=== PATIENT | female | born 1980 | race Caucasian/White ===

== ENCOUNTER 2017-07-09 10:18 | Emergency (ER) | payer MEDICAID, OTHER ==
--- NOTE | 2017-07-09 11:26 | RAD ---
RIGHT HUMERUS 2 VIEWS: INDICATION: Pain, injury. FINDINGS: No fracture or dislocation. IMPRESSION: No acute osseous abnormality of the right humerus. POS: [facility]
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
[2017-07-09] MEDS ORDERED: Ondansetron ODT 4 MG TAB ONE (12:00)
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
--- OUTSIDE RECORDS SUMMARY | 2017-07-13 10:03 | XMS | Continuity of Care Document ---
:1980 Author Organization [facility] Care Team Providers Name Role Phone KAT WEBB Admitting Physician KAT WEBB Attending Physician Hospital Admission Diagnosis Code Admission Diagnosis Date [id number] Open wound of foot Social History Element Description Code Description Smoking Status Start Date End Date Code System Smoking Status 432668860 Current every day SNOMED-CT smoker Problems Code Code System Problem Name Start Date End Date Status ESOPHAGEAL ULCERS Unknown Active 685365622 SNOMED-CT Poisoning due to venomous spider Unknown Active 1422830 SNOMED-CT Arthritis Unknown Active 75056464 SNOMED-CT Anxiety Unknown Active Medications RxNorm Medication Dose Route Instructions Indications Start End Status Date Date 307291 Acetaminophen 1 tablet Oral orally every 4 pain Active 300 MG / to 6 hours as Codeine needed. Phosphate 30 MG Oral Tablet 2556 Citalopram 60 Oral orally every Active milligrams day 258 Clindamycin 600 Oral orally 4 times Active milligram per day (10 day) 4083 Estradiol 0.5 Oral orally every Active milligram day Ibuprofen 800 800 Oral orally 3 times Active MG Oral Tablet milligram per day 935307 ziprasidone 20 20 milligram Oral orally 2 times Active MG Oral Capsule per day (administer with food;) Allergies Code Code Allergy Type Reaction Severity Start End Status System Substance Date Date 7986 RXNorm Penicillins Drug 'mother Moderate Active allergy always told me I was allergic' 1514598 RXNorm latex Drug 'swelling Moderate Active allergy and blistering' Results Laboratory Results Order: CULTURE AEROBIC LOINC Test Result Flag Range Unit Date Specimen: Foot Right 02/11/2017 07:43 Collected: 02/11/2017 07:43 02/11/2017 07:43 02/11/2017 07:43 Status: Final Last Updated: 02/14/2017 07:51 02/11/2017 07:43 02/11/2017 07:43 (1) right foot tissue 02/11/2017 07:43 02/11/2017 07:43 02/11/2017 07:43 02/11/2017 07:43 Culture Result (Final) (Final) 02/11/2017 07:43 No Growth After 72 Hours 02/11/2017 07:43 02/11/2017 07:43 02/11/2017 07:43 Order: CULTURE ANAEROBIC LOINC Test Result Flag Range Unit Date Specimen: Foot Right 02/11/2017 07:43 Collected: 02/11/2017 07:43 02/11/2017 07:43 02/11/2017 07:43 Status: Final Last Updated: 02/14/2017 07:51 02/11/2017 07:43 02/11/2017 07:43 (1) right foot tissue 02/11/2017 07:43 02/11/2017 07:43 02/11/2017 07:43 02/11/2017 07:43 Culture Result (Final) (Final) 02/11/2017 07:43 No Anaerobes Isolated 02/11/2017 07:43 02/11/2017 07:43 02/11/2017 07:43 Order: CBC PLATELET AUTO DIFF LOINC Test Result Flag Range Unit Date 37440-1 1Leukocytes^^corrected for 8.1 4.8-10.8 k/ul 02/09/2017 14:04 nucleated erythrocytes:NCnc:Pt:Bld:Q n:Automated count 789-8 1Erythrocytes:NCnc:Pt:Bld: 4.38 4.20-5.40 Millions/ul 02/09/2017 14:04 Qn:Automated count 718-7 1Hemoglobin:MCnc:Pt:Bld:Qn 9.5 L 12.0-14.0 gm/dl 02/09/2017 14:04 4544-3 1Hematocrit:VFr:Pt:Bld:Qn: 31.2 L 37.0-47.0 % 02/09/2017 14:04 Automated count 787-2 1Erythrocyte mean 71.3 L 81.0-99.0 fL 02/09/2017 14:04 corpuscular volume:EntVol:Pt:RBC:Qn:Au tomated count 785-6 1Erythrocyte mean 21.8 L 27.0-31.0 pg 02/09/2017 14:04 corpuscular hemoglobin:EntMass:Pt:RBC: Qn:Automated count 786-4 1Erythrocyte mean 30.5 L 33.0-37.0 gm/dl 02/09/2017 14:04 corpuscular hemoglobin concentration:MCnc:Pt:RBC: Qn:Automated count 788-0 1Erythrocyte distribution 19.3 H 11.5-14.5 % 02/09/2017 14:04 width:Ratio:Pt:RBC:Qn:Auto mated count 777-3 1Platelets:NCnc:Pt:Bld:Qn: 230 130-400 10^3/ul 02/09/2017 14:04 Automated count 43775-0 1Platelet mean 7.7 7.4-10.4 fL 02/09/2017 14:04 volume:EntVol:Pt:Bld:Qn:Au tomated count 770-8 1Neutrophils/100 66.3 42.0-75.0 % 02/09/2017 14:04 leukocytes:NFr:Pt:Bld:Qn:A utomated count 736-9 1Lymphocytes/100 22.9 13.0-42.0 % 02/09/2017 14:04 leukocytes:NFr:Pt:Bld:Qn:A utomated count 5905-5 1Monocytes/100 5.2 4.0-14.0 % 02/09/2017 14:04 leukocytes:NFr:Pt:Bld:Qn:A utomated count 713-8 1Eosinophils/100 5.5 H 1.0-3.0 % 02/09/2017 14:04 leukocytes:NFr:Pt:Bld:Qn:A utomated count 706-2 1Basophils/100 0.1 L 1.0-3.0 % 02/09/2017 14:04 leukocytes:NFr:Pt:Bld:Qn:A utomated count 1NRBC, Auto 0 02/09/2017 14:04 Performing Lab Footnotes:[address] [place] [address]-[facility] [id number] - [address] [facility] [address] [address] [place] [id number] [facility] - : DIRECTOR MANUEL GONSALES__ ____ Vital Signs Vitals Value Date Body Temperature 97.6 F 02/11/2017 Respiratory Rate 16 02/11/2017 O2% BldC Oximetry 98 02/11/2017 BP Systolic 110 mmHg 02/11/2017 BP Diastolic 71 mmHg 02/11/2017 Height 62 in 02/09/2017 Weight Measured 145.04 lbs 02/09/2017 BSA (Body Surface Area) 1.37036 02/09/2017 BMI (Body Mass Index) 26.6 02/09/2017 Plan of Care No data in the system Procedures Code Code System Procedure Name Target Site Date of Procedure 512692192 SNOMED Hysterectomy 12/2016 OPEN EXCISION OF ENDOMETRIOSIS 2016 COLON RESECTION 2014 BACK SURGERY 2009 73587703 SNOMED Hernia repair 2006 EXCISION OF BENIGN BREAST MASS 2002 538610222 SNOMED Reconstruction of nose 2001 LAP EXCISION OF ENDOMETRIOSIS X 7 Unknown Encounters No data in the system Immunizations Vaccine Code Code System Vaccine Name Date Status INFLUENZA APR 2016 Completed PNEUMONIA APR 2015 Completed TETANUS APR 2016 Completed Functional Status No data in the system Hospital Discharge Instructions PsychosocialPatient/Family ConcernsNoneEmotional StateCalmPleasantDischarge InstructionsDischarge Diagnosiss/p I&D OF RIGHT FOOTActivity LevelNON WEIGHT BEARING TO THE RIGHT FOOTOtherMedicationsContinue Present MedicationsDietRegularInstructions ProvidedDischarge InstructionsPatient education providedFollow Up CareYesScheduled AppointmentDischarge Instructions 2Wound / Incision CareIncisionPersonal Belongings Returned To Patient/FamilyN/ AValuables Returned To Patient/FamilyN/APre-Admission Medications Returned To Patient/FamilyN/APerson Receiving Discharge InstructionsS. WINK/ FAMILYDischarge Instructions Explained ToPatientSpouseDischarge SummaryDischarge StatusNON WEIGHT BEARING TO THE RIGHT FOOTPatient Transferred/ Discharged ToPeter [facility] HospitaleAccompanied BySpouseMode Of DischargeWheelchairDischarge StatusVital Signs StablePatient Transferred/Discharged ToRelativesDischarge StatusAfebrileOtherPain At DischargeDenies PainPt shows no visible signs of pain
--- OUTSIDE RECORDS SUMMARY | 2017-07-13 10:03 | XMS | Continuity of Care Document ---
:1980 Author Organization [facility] Care Team Providers Name Role Phone KAT WEBB Admitting Physician KAT WEBB Attending Physician Hospital Admission Diagnosis Code Admission Diagnosis Date [id number] Open wound of foot Social History Element Description Code Description Smoking Status Start Date End Date Code System Smoking Status 562205358 Current every day SNOMED-CT smoker Problems Code Code System Problem Name Start Date End Date Status ESOPHAGEAL ULCERS Unknown Active 268208031 SNOMED-CT Poisoning due to venomous spider Unknown Active 8611555 SNOMED-CT Arthritis Unknown Active 30519491 SNOMED-CT Anxiety Unknown Active Medications RxNorm Medication Dose Route Instructions Indications Start End Status Date Date 058045 Acetaminophen 1 tablet Oral orally every 4 [...] Active MG Oral Tablet milligram per day 183584 ziprasidone 20 20 milligram Oral orally 2 times Active MG Oral Capsule per day (administer with food;) Allergies Code Code Allergy Type Reaction Severity Start End Status System Substance Date Date 7986 RXNorm Penicillins Drug 'mother Moderate Active allergy always told me I was allergic' 3491141 RXNorm latex Drug 'swelling Moderate Active allergy [...] LOINC Test Result Flag Range Unit Date 41789-3 1Leukocytes^^corrected for 8.1 4.8-10.8 k/ul 02/09/2017 14:04 [...] 230 130-400 10^3/ul 02/09/2017 14:04 Automated count 32739-7 1Platelet mean 7.7 7.4-10.4 fL 02/09/2017 14:04 [...] 1NRBC, Auto 0 02/09/2017 14:04 Performing Lab Footnotes:[address] [place] [address] - [id number] - [address] [facility] [facility] [place] [address] LETITIA Lee MD: DIRECTOR MANUEL GONSALES__ ____ Vital Signs Vitals Value Date Body Temperature 97.6 F 02/11/2017 Respiratory Rate 16 02/11/2017 O2% BldC Oximetry 98 02/11/2017 BP Systolic 110 mmHg 02/11/2017 BP Diastolic 71 mmHg 02/11/2017 Height 62 in 02/09/2017 Weight Measured 145.04 lbs 02/09/2017 BSA (Body Surface Area) 1.02315 02/09/2017 BMI (Body Mass Index) 26.6 02/09/2017 Plan of Care No data in the system Procedures Code Code System Procedure Name Target Site Date of Procedure 56536 CPT4 DEBRIDEMENT MUSCLE & FASCIA 20 SQ 02/11/2017 CM/< 812236566 SNOMED Hysterectomy 12/2016 OPEN EXCISION OF ENDOMETRIOSIS 2016 COLON RESECTION 2014 BACK SURGERY 2009 35102703 SNOMED Hernia repair 2006 EXCISION OF BENIGN BREAST MASS 2002 047102930 SNOMED Reconstruction of nose 2001 LAP EXCISION OF ENDOMETRIOSIS X 7 Unknown Encounters Date Code Diagnosis Status (ICD10) - I96 GANGRENE NOT ELSEWHERE CLASSIFIED Active Immunizations Vaccine Code Code System Vaccine Name [...] BEARING TO THE RIGHT FOOTPatient Transferred/ Discharged ToHomeAccompanied BySpouseMode Of DischargeWheelchairDischarge StatusVital Signs StablePatient Transferred/Discharged ToRelativesDischarge StatusAfebrileOtherPain At DischargeDenies PainPt shows no visible signs of pain
== END 2017-07-09 12:55 | disposition home or self-care (01) ==
LOC: ERS 10:18
DX: S16.1XXA Strain of muscle, fascia and tendon at neck level, initial encounter (principal); S00.03XA Contusion of scalp, initial encounter; S40.021A Contusion of right upper arm, initial encounter; F17.200 Nicotine dependence, unspecified, uncomplicated; V03.99XA Pedestrian with other conveyance injured in collision with car, pick-up truck or van, unspecified whether traffic or nontraffic accident, initial encounter
CPT/HCPCS: 70450; 72040; 99406; Q0162

== ENCOUNTER 2017-08-17 12:57 | Outpatient (CLI) | payer OTHER ==
--- NOTE | 2017-08-17 14:16 | MRI ---
MRI CERVICAL SPINE: Date: 08/17/17 Multiplanar, multisequential imaging of cervical spine obtained. HISTORY: Cervical radiculopathy. Bilateral shoulder pain. FINDINGS: Cervical vertebral maintain normal height and alignment. Disc spaces are maintained. No significant disc bulge or spondylosis seen at C2-3 or C3-4. At C4-5, minimal disc bulge and spondylosis flatten the thecal sac. The anterior subarachnoid space i s preserved. The foramina are patent. At C5-6 and C6-7, there is also minimal spondylitic change and disc bulge. Anterior subarachnoid spac e is preserved at both of these levels. There is no foraminal encroachment. At C7-T1, no disc bulge or spondylitic change seen. Cervical cord signal is normal. IMPRESSION: Unremarkable MRI of cervical spine. Minimal disc bulge and spondylosis seen as described above. POS: [facility]
--- NOTE | 2017-08-17 14:17 | RAD ---
CERVICAL SPINE SERIES 3 VIEWS INCLUDING FLEXION AND EXTENSION: Date: 08/17/17 HISTORY: Cervical radiculopathy, bilateral shoulder pain. FINDINGS: Vertebral bodies maintain normal height. Disc spaces are fairly well preserved. I do not appreciate a ny anterolisthesis or retrolisthesis. On flexion, there is slightly more prominent anterior translati on of C4-5. No soft tissue swelling. IMPRESSION: No acute findings. No significant disc space narrowing seen. POS: [facility]
== END 2017-08-17 12:58 | disposition home or self-care (01) ==
LOC: TBSIIMAG 12:57
PROVIDERS: ATTEND Neurological Surgery
DX: M47.22 Other spondylosis with radiculopathy, cervical region (principal)
CPT/HCPCS: 72040; 72141

== ENCOUNTER 2017-10-25 10:36 | Outpatient (CLI) | payer MEDICAID, OTHER ==
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
== END 2017-10-25 10:37 | disposition home or self-care (01) ==
LOC: EEVIPCON 10:36 → SCSMRI 10:36
PROVIDERS: ATTEND Orthopaedic Surgery
DX: M25.511 Pain in right shoulder (principal); M19.011 Primary osteoarthritis, right shoulder

== ENCOUNTER 2022-01-10 19:04 | Emergency (ER) | payer OTHER | END 2022-01-10 19:56 | disposition home or self-care (01) | LOC: ERS 19:04 | DX: S09.90XA Unspecified injury of head, initial encounter (principal); S00.83XA Contusion of other part of head, initial encounter; F17.200 Nicotine dependence, unspecified, uncomplicated; Y04.8XXA Assault by other bodily force, initial encounter; Y92.481 Parking lot as the place of occurrence of the external cause | CPT/HCPCS: 70450; 70486 ==